=== PATIENT | female | born 1940 | race Caucasian/White ===

== ENCOUNTER → 2016-09-19 | Outpatient (CLI) | payer OTHER ==
[~2016-09-19] MED LIST: ADVAIR 250/501 DISK IH; CYCLOBENZAPRINE10 MG PO; GLIMEPIRIDE4 MG PO; HYDROCODON-ACE1 EAC7 PO; LISINOPRIL40 MG PO; METOPROLOL SUCC50 MG PO; PLAVIX75 MG PO; VITAMIN D31000 UNIT PO; VYTORIN 10/81 TABLET PO
== END | disposition home or self-care (01) ==
LOC: RES 12:46
DX: R94.2 Abnormal results of pulmonary function studies (principal); C09.9 Malignant neoplasm of tonsil, unspecified
CPT/HCPCS: 94060; 94726; 94729